=== PATIENT | male | born 1970 | race Two or more races ===

== ENCOUNTER 2021-07-01 06:42 | Day surgery (SDC) | payer OTHER | END 2021-07-01 10:55 | disposition home or self-care (01) | LOC: AMB-ENDOS 06:42 → EDBD 14:45 → AMB-ENDOS 14:45 | PROVIDERS: ATTEND Surgery | DX: D12.5 Benign neoplasm of sigmoid colon (principal); K64.8 Other hemorrhoids; Z20.822 Contact with and (suspected) exposure to COVID-19 ==